=== PATIENT | female | born 1990 | race Caucasian/White ===

== ENCOUNTER 2023-10-03 08:35 | Inpatient (IN) | payer OTHER, MEDICAID, SELFPAY ==
[2023-10-03] VITALS (20 sets, daily range): BP systolic 107–127; BP diastolic 66–86; PULSE 62–94; RESP 16–43; TEMP 36.3–37.1; O2SAT 87–96; BMI 30.2
--- NOTE | 2023-10-03 08:54 | ED.URI ---
HPI - URI/Sore Throat General Chief Complaint: Upper Respiratory Symptoms Stated Complaint: chest hurts sob Time Seen by Provider: 10/03/23 08:42 History of Present Illness HPI Narrative: 33-year-old female with no reported past medical history presents for 7-8 weeks wheezing, chest tightness, shortness of breath. Symptoms started after a nonspecific upper respiratory syndrome several months ago and has been persistent since onset. Patient states that she bought an amwh-iov-tpbgggz asthma pump at [employer], but it does not seem to be helping very much. Patient states she feels like she got wheezier around 3-4am today, prompting her visit to the ED today. Patient has not seen any other physicians or providers for this complaint. Patient denies history of asthma or other lung diseases as a child, she does not know her family history because she was adopted. She states she does vape and smoke marijuana, but is trying to quit. Review of Systems Review of Systems Narrative: Negative except as noted above Patient History Social History Smoking Status: Current every day smoker Smoking Status: Current every day smoker tobacco type: vaping alcohol intake frequency: holidays/special occasions only Substance Use Type: marijuana Exam Initial Vital Signs Initial Vital Signs: Vital Signs Pulse Rate 74 10/03/23 08:45 Pulse Oximetry 92 10/03/23 08:45 Const: Awake, alert, uncomfortable, nontoxic appearing Cardiac: regular rate, regular rhythm RESP: Speaking in complete sentences with some degree of difficulty, loud expiratory wheezes GI: Soft, nontender, nondistended, no rebound, no guarding MSK: Atraumatic, full range of motion, pulses equal Skin: Warm, Dry, intact, no rashes Neuro: AO x3, CN II-XII grossly intact, moves all extremities Course Orders Ordered: ED Orders 10/03/23 08:54 Chest [XR chest 2V] Stat 10/03/23 10:19 CT chest wo con Stat 10/03/23 10:27 Complete Blood Count AUTO DIFF Stat Comprehensive Metabolic Panel Stat 10/03/23 12:00 Trop I [Troponin I] Stat 10/03/23 12:08 Respiratory Panel (Film Array) Stat Discontinued Medications Albuterol/Ipratropium (Albuterol/Ipratropium 3 Ml Ampul) 9 ml INH NOW ONE Stop: 10/03/23 08:55 Last Admin: 10/03/23 09:16 Dose: 9 ml Documented By: ADRIEN Albuterol/Ipratropium (Albuterol/Ipratropium 3 Ml Ampul) 9 ml INH NOW ONE Stop: 10/03/23 11:53 Last Admin: 10/03/23 12:31 Dose: 9 ml Documented By: ADRIEN(2) Budesonide (Budesonide 0.5 Mg/2 Ml Neb) 0.5 mg INH NOW ONE Stop: 10/03/23 12:26 Last Admin: 10/03/23 12:31 Dose: 0.5 mg Documented By: ADRIEN(2) Dexamethasone (Dexamethasone 10 Mg/Ml Vial) 10 mg PO NOW ONE Stop: 10/03/23 08:55 Last Admin: 10/03/23 09:23 Dose: 10 mg Documented By: AMY Vital Signs Vital signs: Vital Signs - 8 hr 10/03/23 08:45 10/03/23 08:49 10/03/23 09:04 Temperature 98.7 F Pulse Rate 74 84 75 Respiratory Rate 16 43 H Blood Pressure 127/86 Pulse Oximetry 92 94 94 Oxygen Delivery Method Room Air Oxygen Flow Rate Fraction of Inspired Oxygen 10/03/23 09:16 10/03/23 09:30 10/03/23 10:00 Temperature Pulse Rate 65 75 85 Respiratory Rate 18 28 H 28 H Blood Pressure Pulse Oximetry 95 96 87 L Oxygen Delivery Method Room Air Oxygen Flow Rate Fraction of Inspired Oxygen 10/03/23 10:25 10/03/23 10:30 10/03/23 10:59 Temperature Pulse Rate 72 Respiratory Rate 24 Blood Pressure 114/72 Pulse Oximetry 88 L 93 Oxygen Delivery Method Room Air Nasal Cannula Oxygen Flow Rate 2 Fraction of Inspired Oxygen 10/03/23 10:59 10/03/23 11:00 10/03/23 11:00 Temperature Pulse Rate 75 78 Respiratory Rate 30 H 27 H Blood Pressure 113/68 Pulse Oximetry 92 91 Oxygen Delivery Method Oxygen Flow Rate Fraction of Inspired Oxygen 10/03/23 11:30 10/03/23 11:30 10/03/23 12:00 Temperature Pulse Rate 73 76 Respiratory Rate 22 28 H Blood Pressure 107/74 Pulse Oximetry 91 92 Oxygen Delivery Method Oxygen Flow Rate Fraction of Inspired Oxygen 10/03/23 12:30 10/03/23 12:31 10/03/23 13:00 Temperature Pulse Rate 69 62 75 Respiratory Rate 28 H 18 25 H Blood Pressure Pulse Oximetry 93 96 95 Oxygen Delivery Method Nasal Cannula Oxygen Flow Rate 3 Fraction of Inspired Oxygen 32 MDM - URI/Sore Throat Differential Diagnosis Differential diagnosis: Likely upper respiratory infection, bronchitis and pharyngitis Lab Data 10/03/23 10:27 10/03/23 10:27 Labs: Lab Results 10/03/23 10/03/23 10/03/23 Range/Units 10:27 12:00 12:08 WBC 9.0 (4.5-11.0) X10^3/uL RBC 4.62 (4.0-5.2) X10^6/uL Hgb 13.2 (12.0-16.0) g/dL Hct 39.1 (36-46) % MCV 84.8 (80-100) fL MCH 28.6 (26-34) PG MCHC 33.7 (30-36) % RDW 13.8 (11.6-14.8) % Plt Count 312 (150-400) X10^3/uL Neut % (Auto) 63.9 (50-75) % Lymph % (Auto) 23.6 L (25-40) % [place] % (Auto) 4.5 (3-14) % Eos % (Auto) 7.7 H (2-4) % Baso % (Auto) 0.3 (0-2) % Neut # (Auto) 5800 (8615-3971) /uL Lymph # (Auto) 2100 (4719-1154) /uL [place] # (Auto) 400 (0-900) /uL Eos # (Auto) 700 H (0-450) /uL Baso # (Auto) 0 (0-100) /uL Sodium 137 (137-145) mmol/L Potassium 3.6 (3.4-5.1) mmol/L Chloride 109 H (98-107) mmol/L Carbon Dioxide 23 (22-32) mmol/L BUN 13 (7-17) mg/dL Creatinine 0.58 (0.52-1.04) mg/dL Estimated GFR > 60 (>60) mL/min BUN/Creatinine Ratio 22.4 H (6-22) Glucose 121 H (70-100) mg/dL Calcium 8.7 (8.4-10.2) mg/dL Total Bilirubin 0.7 (0.2-1.3) mg/dL AST 20 (14-36) IU/L ALT 20 (<35) IU/L Alkaline Phosphatase 69 (38-126) U/L Troponin I < 0.012 (0.01-0.034) ng/mL Total Protein 7.3 (6.3-8.2) g/dL Albumin 4.0 (3.5-5.0) g/dL Globulin 3.3 (1.7-4.1) g/dL Albumin/Globulin Ratio 1.2 (1.0-2.8) Chlamy pneumoniae PCR Not detected (Not Detect) Adenovirus (PCR) Not detected (Not Detect) B.parapertussis DNA PCR Not detected (Not Detecte) Coronavirus OC43 (PCR) Not detected (Not Detect) Coronavirus HKU1 (PCR) Not detected (Not Detect) Coronavirus 229E (PCR) Not detected (Not Detect) SARS-CoV-2 (PCR) Not detected (Not Detecte) Coronavirus NL63 (PCR) Not detected (Not Detect) Human Metapneumovir PCR Not detected (Not Detect) Influenza Type A (PCR) Not detected (Not Detect) Influenza Type B (PCR) Not detected (Not Detect) M. pneumoniae (PCR) Not detected (Not Detect) Parainfluenza 1 (PCR) Not detected (Not Detect) Parainfluenza 2 (PCR) Not detected (Not Detect) Parainfluenza 3 (PCR) Not detected (Not Detect) Parainfluenza 4 (PCR) Not detected (Not Detect) RSV (PCR) Not detected (Not Detect) Entero/Rhino (PCR) Not detected (Not Detect) Imaging Data Chest x-ray: Radiologist's Impression: PROCEDURE: XR CHEST 2V INDICATIONS: DYSPNEA X7WKS, NOW WHEEZING TECHNIQUE: 2 views of the chest were acquired. COMPARISON: None. FINDINGS: Surgical changes and devices: None. Lungs and pleura: Lungs are clear. No pleural effusions or pneumothorax. Mediastinum: Mediastinal contours are normal. Heart size is normal. Bones and chest wall: No suspicious bony abnormalities. Soft tissues appear unremarkable. IMPRESSION: No acute cardiopulmonary abnormality is seen. Dictated by: Milton Ni M.D. on 10/03/2023 at 8:24 Approved by: Milton Ni M.D. on 10/03/2023 at 8:25 CT scan - chest: Radiologist's Impression: PROCEDURE: CT CHEST WO CON INDICATIONS: SOB TECHNIQUE: Noncontrast 5 mm thick sections acquired from the pulmonary apices to the posterior costophrenic angles. 1 mm lung window, 5 mm thick coronal and sagittal and 7 mm axial MIP reformats were then acquired. For radiation dose reduction, the following was used: automated exposure control, adjustment of mA and/or kV according to patient size. COMPARISON: [facility], CR, XR CHEST 2V, 10/03/2023, 8:53. FINDINGS: Image quality: Diagnostic. Lower Neck: No enlarged lymph nodes. Thyroid: No thyroid nodules which require sonographic follow up, per consensus guidelines. Axillae: No enlarged lymph nodes. Chest Wall: Unremarkable. Bones: Unremarkable. Lungs and Pleura: No pneumothorax or pleural effusions. Airspace opacities within the right anterior apex. Heart: Heart size is normal. No pericardial effusion. Thoracic Vessels: The aorta and pulmonary arteries demonstrate normal size. Mediastinum and Darlyn: No enlarged lymph nodes. Esophagus: No wall thickening. No hiatal hernia. Upper Abdomen: Visualized upper abdomen solid organs and bowel loops appear normal. IMPRESSION: Ground-glass opacity within the right apex concerning for infection. Given the peripheral ground-glass appearance, consider atypical infection. Dictated by: Milton Ni M.D. on 10/03/2023 at 10:13 Approved by: Milton Ni M.D. on 10/03/2023 at 10:17 [facility] Narrative Medical decision making narrative: Shortness of breath that has been ongoing for several weeks, worsened this morning. Patient has audible wheezes when speaking and loud expiratory wheezes with restricted lung movement at bases. Patient denies history of asthma or other lung diseases, is adopted so there is unknown if patient has family history of things that could cause lead onset lung disease such as alpha 1 antitrypsin. Currently saturating well on room air despite her wheezes. We will give Decadron, albuterol. Patient reports feeling improvement after her albuterol and Decadron, however she still has loud wheezes on pulmonary exam, air movement does seem to have improved. We will monitor saturations and we will observe patient for a while. Saturations decreased after initial nebulizers to upper 80s, low 90s on room air. Placed on supplemental nasal cannula for improved oxygenation. Concerned that patient may need to be admitted for her respiratory status, laboratory work and CT imaging of the chest ordered. Based on the duration of patient's complaints as well as wheezing on exam and no chest pain I have low suspicion for PE. Chest x-ray shows small ground-glass opacity in the right apex concerning for atypical infection, however no other acute process. Patient received a 2nd round of nebulizers but is still requiring 3 L nasal cannula to maintain saturations greater than 92%. Plan to admit patient for further assessment and treatment. Critical Care Time Critical Care Time Critical Care Time: Yes Total Critical Care Time: 42 Attestation: Acute hypoxemic respiratory failure requiring supplemental oxygen, multiple DuoNebs, frequent reassessments. Discharge Plan Departure Patient Disposition: Admitted as Observation Clinical Impression: Acute hypoxemic respiratory failure, Expiratory wheezing
[2023-10-03] MEDS: ALBUTEROL/IPRATROPIUM 3 ML AMPUL 9 ML INH ×2 (09:16→12:31)
[2023-10-03] MEDS: DEXAMETHASONE 10 MG/ML VIAL PO (09:23)
--- NOTE | 2023-10-03 10:19 | DI.CT.S_ITS ---
PROCEDURE: CT CHEST WO CON INDICATIONS: SOB TECHNIQUE: Noncontrast 5 mm thick sections acquired from the pulmonary apices to the posterior costophrenic angles. 1 mm lung window, 5 mm thick coronal and sagittal and 7 mm axial MIP reformats were then acquired. For radiation dose reduction, the following was used: automated exposure control, adjustment of mA and/or kV according to patient size. COMPARISON: [facility], CR, XR CHEST 2V, 10/03/2023, 8:53. FINDINGS: Image quality: Diagnostic. Lower Neck: No enlarged lymph nodes. Thyroid: No thyroid nodules which require sonographic follow up, per consensus guidelines. Axillae: No enlarged lymph nodes. Chest Wall: Unremarkable. Bones: Unremarkable. Lungs and Pleura: No pneumothorax or pleural effusions. Airspace opacities within the right anterior apex. Heart: Heart size is normal. No pericardial effusion. Thoracic Vessels: The aorta and pulmonary arteries demonstrate normal size. Mediastinum and Darlyn: No enlarged lymph nodes. Esophagus: No wall thickening. No hiatal hernia. Upper Abdomen: Visualized upper abdomen solid organs and bowel loops appear normal. IMPRESSION: Ground-glass opacity within the right apex concerning for infection. Given the peripheral ground-glass appearance, consider atypical infection. Dictated by: Milton Ni M.D. on 10/03/2023 at 10:13 Approved by: Milton iN M.D. on 10/03/2023 at 10:17
[2023-10-03 10:35] LABS: Add Manual Diff / Slide Review NO; Basophils Absolute Auto 0 /uL (0-100); Basophils Percent Auto 0.3 % (0-2); Eosinophils Absolute Auto 700 /uL (0-450); Eosinophils Percent Auto 7.7 % (2-4); Hematocrit 39.1 % (36-46); Hemoglobin 13.2 g/dL (12.0-16.0); Lymphocytes Absolute Auto 2100 /uL (1100-4500); Lymphocytes Percent Auto 23.6 % (25-40); Mean Corpuscular HGB Conc 33.7 % (30-36); Mean Corpuscular Hemoglobin 28.6 PG (26-34); Mean Corpuscular Volume 84.8 fL (80-100); Monocytes Absolute Auto 400 /uL (0-900); Monocytes Percent Auto 4.5 % (3-14); Neutrophils Absolute Auto 5800 /uL (1500-7000); Neutrophils Percent Auto 63.9 % (50-75); Platelet Count 312 X10^3/uL (150-400); Red Blood Cell Count 4.62 X10^6/uL (4.0-5.2); Red Cell Distribution Width 13.8 % (11.6-14.8)
[2023-10-03 10:50] LABS: Alanine Aminotransferase 20 IU/L (<35); Albumin Globulin Ratio 1.2 (1.0-2.8); Alkaline Phosphatase 69 U/L (38-126); Aspartate Aminotransferase 20 IU/L (14-36); BUN Creatinine Ratio 22.4 (6-22); Bilirubin Total 0.7 mg/dL (0.2-1.3); Blood Urea Nitrogen 13 mg/dL (7-17); Calcium 8.7 mg/dL (8.4-10.2); Carbon Dioxide 23 mmol/L (22-32); Chloride 109 mmol/L (98-107); Estimated Glomerular Filt Rate > 60 mL/min (>60); Globulin 3.3 g/dL (1.7-4.1); Glucose 121 mg/dL (70-100); HEMOLYSIS < 15 (0-50); Potassium 3.6 mmol/L (3.4-5.1); Sodium 137 mmol/L (137-145); Total Protein 7.3 g/dL (6.3-8.2)
[2023-10-03] MEDS: BUDESONIDE 0.5 MG/2 ML NEB INH (12:31)
[2023-10-03 12:34] LABS: Troponin I < 0.012 ng/mL (0.01-0.034)
[2023-10-03 13:15] LABS: Adenovirus Not Detected (Not Detect); B. parapertussis Not Detected (Not Detecte); Bordetella pertussis Not Detected (Not Detect); Chlamydophila pneumoniae Not Detected (Not Detect); Coronavirus 229E Not Detected (Not Detect); Coronavirus HKU1 Not Detected (Not Detect); Coronavirus NL 63 Not Detected (Not Detect); Coronavirus OC43 Not Detected (Not Detect); Human Metapneumovirus Not Detected (Not Detect); Human Rhinovirus/Enterovirus Not Detected (Not Detect); Influenza A Not Detected (Not Detect); Influenza B Not Detected (Not Detect); Mycoplasma pneumoniae Not Detected (Not Detect); Parainfluenza Virus 1 Not Detected (Not Detect); Parainfluenza Virus 2 Not Detected (Not Detect); Parainfluenza Virus 3 Not Detected (Not Detect); Parainfluenza Virus 4 Not Detected (Not Detect); Respiratory Syncytial Virus Not Detected (Not Detect); SARS- CoV-2 Not Detected (Not Detecte)
--- NOTE | 2023-10-03 14:08 | PC.NURSE ---
floor rn to call back for report
--- NOTE | 2023-10-03 15:12 | PC.NURSE ---
Addendum entered by Hailey Rubio R.N. 10/04/23 10:45: Patient sounds a bit better today but her lung sounds are still wheezy and course. She is on 3L of oxygen and sats in the mid 90s. Up independently to the bathroom. She has ceftriaxone infusing in her l.ac at this time and she is visiting with her boyfriend now. Original Note: Patient just admitted to room 209. BS with wheezes to upper and lower lobes, She is on 3L of oxygen and sats are 94%. Skin is clear, she does have a couple of small scars to her l.knee from previous orthoscopic knee surgery. Patient does vape and smokes marijuana, she denies any other use of alcohol or drugs. Resting comfortably now.
--- NOTE | 2023-10-03 15:35 | PM.HP.1 ---
History of Present Illness History of Present Illness Date Patient Seen: 10/03/23 Time Patient Seen: 15:35 Chief complaint: chest hurts sob Narrative: The patient is a 33-year-old female who is otherwise healthy. She is visiting her boyfriend who lives in this area. She has a history of using a vape as well as occasional smoking of marijuana. She presents with progressive shortness a breath which has been ongoing for about 2 weeks. She has had mostly dyspnea on exertion. She is noted some audible wheezing and did buy an vmif-zme-cajtcsh inhaler which has helped to some degree. She has no history of lung problems, and did note that she had a fever about a week ago when her kids have had upper respiratory illnesses. She denies rhinorrhea, cough or sore throat. She did have respiratory PCR in the ED which was negative. Her chest x-ray is also unremarkable, a CT of the chest without angiogram revealed some basilar ground-glass opacities. She was to look smoke cigarettes and then went to the vape as a means of getting way of from cigarettes. She also intends to stop vaping. She received bronchodilators in the ED with great improvement of her breathing. The reason she came in today is because her breathing became much worse than it has been a would not improve with her inhaler. In the ED, she was found to be very wheezy. She was also hypoxemic and required 3 L of oxygen to maintain saturations above 90%. [facility] Social History household members: children Smoking Status: Current every day smoker alcohol intake: current Meds Home Medications and Allergies Home Medications Medication Instructions Recorded Confirmed Type No Known Home Medications 10/03/23 10/03/23 History Allergies Allergy/AdvReac Type Severity Reaction Status Date / Time pineapple AdvReac Hives Verified 10/03/23 14:58 Review of Systems Review of Systems Narrative: All else reviewed and otherwise unremarkable except as noted in the history and physical. Exam Vital Signs (past 8 hours): - 10/03/23 08:45 10/03/23 08:49 10/03/23 09:04 Temperature 98.7 F Pulse Rate 74 84 75 Respiratory Rate 16 43 H Blood Pressure 127/86 Pulse Oximetry 92 94 94 Oxygen Delivery Method Room Air Oxygen Flow Rate Fraction of Inspired Oxygen 10/03/23 09:16 10/03/23 09:30 10/03/23 10:00 Temperature Pulse Rate 65 75 85 Respiratory Rate 18 28 H 28 H Blood Pressure Pulse Oximetry 95 96 87 L Oxygen Delivery Method Room Air Oxygen Flow Rate Fraction of Inspired Oxygen 10/03/23 10:25 10/03/23 10:30 10/03/23 10:59 Temperature Pulse Rate 72 Respiratory Rate 24 Blood Pressure 114/72 Pulse Oximetry 88 L 93 Oxygen Delivery Method Room Air Nasal Cannula Oxygen Flow Rate 2 Fraction of Inspired Oxygen 10/03/23 10:59 10/03/23 11:00 10/03/23 11:00 Temperature Pulse Rate 75 78 Respiratory Rate 30 H 27 H Blood Pressure 113/68 Pulse Oximetry 92 91 Oxygen Delivery Method Oxygen Flow Rate Fraction of Inspired Oxygen 10/03/23 11:30 10/03/23 11:30 10/03/23 12:00 Temperature Pulse Rate 73 76 Respiratory Rate 22 28 H Blood Pressure 107/74 Pulse Oximetry 91 92 Oxygen Delivery Method Oxygen Flow Rate Fraction of Inspired Oxygen 10/03/23 12:30 10/03/23 12:31 10/03/23 13:00 Temperature Pulse Rate 69 62 75 Respiratory Rate 28 H 18 25 H Blood Pressure Pulse Oximetry 93 96 95 Oxygen Delivery Method Nasal Cannula Oxygen Flow Rate 3 Fraction of Inspired Oxygen 32 10/03/23 13:30 10/03/23 14:00 Temperature Pulse Rate 94 H 84 Respiratory Rate 24 24 Blood Pressure Pulse Oximetry 92 91 Oxygen Delivery Method Nasal Cannula Nasal Cannula Oxygen Flow Rate 3 3 Fraction of Inspired Oxygen Fraction of Inspired Oxygen 32 SaO2/FiO2 Ratio 300 Oxygen Delivery Method Nasal Cannula Oxygen Flow Rate 3 Narrative Exam Narrative: NAD, alert and oriented, fluent speech, calm. Normocephalic skull, EOMI, anicteric sclera, symmetric pupils. Oropharynx unremarkable, no droop. Neck supple, midline trachea, no adenopathy. Lungs are notable for inspiratory and expiratory, normal rate and effort. Heart regular, no murmur gallop or rub. Abdomen is soft, non distended and non tender. Extremities are free of edema. Skin is free of rash or lesions. Joints are not swollen or deformed. Judgment appears to be normal. Objective Imaging CT scan - chest: Radiologist's impression: Ground-glass opacity within the right apex concerning for infection. Given the peripheral ground-glass appearance, consider atypical infection. Chest x-ray: Radiologist's impression: No acute cardiopulmonary abnormality is seen. Labs 10/03/23 10:27 10/03/23 10:27 Labs: Laboratory Results - last 24 hr 10/03/23 10/03/23 10/03/23 10: 12:00 12:08 WBC 9.0 RBC 4.62 Hgb 13.2 Hct 39.1 MCV 84.8 MCH 28.6 MCHC 33.7 RDW 13.8 Plt Count 312 Neut % (Auto) 63.9 Lymph % (Auto) 23.6 L [place] % (Auto) 4.5 Eos % (Auto) 7.7 H Baso % (Auto) 0.3 Neut # (Auto) 5800 Lymph # (Auto) 2100 [place] # (Auto) 400 Eos # (Auto) 700 H Baso # (Auto) 0 Sodium 137 Potassium 3.6 Chloride 109 H Carbon Dioxide 23 BUN 13 Creatinine 0.58 Estimated GFR > 60 BUN/Creatinine Ratio 22.4 H Glucose 121 H Calcium 8.7 Total Bilirubin 0.7 AST 20 ALT 20 Alkaline Phosphatase 69 Troponin I < 0.012 Total Protein 7.3 Albumin 4.0 Globulin 3.3 Albumin/Globulin Ratio 1.2 Chlamy pneumoniae PCR Not detected Adenovirus (PCR) Not detected B.parapertussis DNA PCR Not detected Coronavirus OC43 (PCR) Not detected Coronavirus HKU1 (PCR) Not detected Coronavirus 229E (PCR) Not detected SARS-CoV-2 (PCR) Not detected Coronavirus NL63 (PCR) Not detected Human Metapneumovir PCR Not detected Influenza Type A (PCR) Not detected Influenza Type B (PCR) Not detected M. pneumoniae (PCR) Not detected Parainfluenza 1 (PCR) Not detected Parainfluenza 2 (PCR) Not detected Parainfluenza 3 (PCR) Not detected Parainfluenza 4 (PCR) Not detected RSV (PCR) Not detected Entero/Rhino (PCR) Not detected Assessment & Plan Assessment & Plan narrative: 1. Probable asthma exacerbation, present on admission and active. The patient has no formal diagnosis of asthma and we will require pulmonary function tests in several weeks after she is over her acute exacerbation. 2. Acute hypoxic respiratory failure, present on admission and active. 3. Vape abuse, present on admission and active. Plan: -azithromycin p.o. 500 daily. -prednisone 40 mg p.o. daily. -bronchodilators q.2 hours as needed, albuterol. -wean oxygen as able. She understands importance of stopping the use of the vape as well as smoking marijuana. In addition she has a primary care doctor Dr. Pelaez in [place]. She will follow up with him to resume evaluation for possible asthma after she was discharged. Time Spent With Patient Time with patient: 30 to 49 minutes with 50% spent counseling/coordinating care Quality VTE Deep Vein Thrombosis/Pulmonary Embolism Present on Admission: No MIPS - Admit I confirm the patient?s Advance Care Plan is present, Code status is documented, Surrogate decision maker is in patient?s record [If Yes, STOP here]: Yes MIPS - Meds 'Current medications' to include all prescriptions, uxib-wul-aniwapo products, herbals, cannabis/cannabidiol products, and vitamin/mineral/dietary (nutritional) supplements. I have utilized all available resources to obtain, update, or review the patient?s current medications. [If Yes, STOP here]: Yes
[2023-10-03] MEDS: NICOTINE 14 PATCH 14 MG TOP (16:12)
[2023-10-03] MEDS: predniSONE 20 MG TABLET 40 MG PO (16:12)
[2023-10-03] MEDS: ALBUTEROL 2.5 MG/3 ML NEB (ADULT) INH (19:45)
[2023-10-04] VITALS (10 sets, daily range): BP systolic 110–126; BP diastolic 56–78; PULSE 71–99; RESP 16–20; TEMP 36.4–36.9; O2SAT 93–96
[2023-10-04] MEDS: ALBUTEROL 2.5 MG/3 ML NEB (ADULT) INH ×3 (01:35→14:11)
[2023-10-04 06:09] LABS: Add Manual Diff / Slide Review NO; Basophils Absolute Auto 100 /uL (0-100); Basophils Percent Auto 0.4 % (0-2); Eosinophils Absolute Auto 0 /uL (0-450); Eosinophils Percent Auto 0.1 % (2-4); Hematocrit 39.4 % (36-46); Lymphocytes Absolute Auto 1400 /uL (1100-4500); Lymphocytes Percent Auto 9.9 % (25-40); Mean Corpuscular HGB Conc 33.1 % (30-36); Mean Corpuscular Hemoglobin 28.3 PG (26-34); Mean Corpuscular Volume 85.4 fL (80-100); Monocytes Absolute Auto 400 /uL (0-900); Monocytes Percent Auto 2.8 % (3-14); Neutrophils Absolute Auto 11800 /uL (1500-7000); Neutrophils Percent Auto 86.8 % (50-75); Platelet Count 349 X10^3/uL (150-400); Red Blood Cell Count 4.61 X10^6/uL (4.0-5.2); Red Cell Distribution Width 13.8 % (11.6-14.8); White Blood Cell Count 13.6 X10^3/uL (4.5-11.0)
[2023-10-04 06:23] LABS: BUN Creatinine Ratio 18.5 (6-22); Blood Urea Nitrogen 10 mg/dL (7-17); Calcium 9.2 mg/dL (8.4-10.2); Carbon Dioxide 23 mmol/L (22-32); Chloride 108 mmol/L (98-107); Estimated Glomerular Filt Rate > 60 mL/min (>60); Glucose 134 mg/dL (70-100); HEMOLYSIS < 15 (0-50); Potassium 4.3 mmol/L (3.4-5.1); Sodium 140 mmol/L (137-145)
[2023-10-04] MEDS: cefTRIAXone 1,000 MG in SODIUM CHLORIDE 0.9% 100 ML 200 MG IV (10:15)
[2023-10-04] MEDS: NICOTINE 14 PATCH 14 MG TOP (10:15)
[2023-10-04] MEDS: predniSONE 20 MG TABLET 40 MG PO (10:15)
[2023-10-04] MEDS: AZITHROMYCIN 250 MG TABLET 500 MG PO (10:15)
[2023-10-04] MEDS: MONTELUKAST 10 MG TABLET PO (14:04)
--- NOTE | 2023-10-04 14:07 | CM.DANOTE ---
Patient is a 33 yo female who was admitted INPT on 10/03/23 for SOB. Pt has [employer] and [employer] for insurance and her PCP is Dr. Pelaez in [place]. EMR was reviewed. Per MD, pt with hx of vaping and smoking marijuana and admitted for likely undx asthma exacerbation, hypoxia, and possible pneumonia and on 3LO2. Pt unable to be weaned to room air today and not yet medically stable to d/c. SW met bedside with pt and her sister Raine [phone] and they confirm that pt lives in [place] with her two children that she shares custody with her ex and kids are currently with her ex. Pt is active and independent at baseline, does not use DME for ambulation, drives regularly, works, and does not have home oxygen at baseline. Pt confirms her sister Raine lives only a couple minutes from her in [place] and pt comes down to visit her boyfriend Kalyan [phone] who lives in [place]. Pt denies any current discharge planning needs and preference is to discharge home once off oxygen and sister confirms she can provide transport as pt's car is currently with her boyfriend. Plan: SW to follow for plan of discharge home via sister POV when weaned to room air and any further identified discharge planning needs. TIM Vanegas Discharge Planning/Care Management CM Discharge Assessment Start: 10/04/23 13:37 Freq: Status: Active Protocol: Document 10/04/23 13:37 BF (Rec: 10/04/23 13:39 BF [id number]) Discharge Planning Assessment Assigned Mva Reactor Operator Head TIM Bustillos DPOA/Assigned Designee Name none Advance Directives? No Advance Directives on File No History Provided By Patient,Medical Record Has Patient been admitted in last 30 No days? Prior Living Arrangements RV Household Members children Type of transporation used prior to Drives own vehicle admit Independent with ADL's Yes Is patient alert and oriented? Yes Caregiver for Another Yes: children at home Barriers to Discharge No Discharge Plan Home Referrals Initiated None needed Additional Comment plans to f/u with PCP regarding possible asthma Whiteboard Updated in Patient Room with Yes name and ext. # of Mva Reactor Operator Head Review Status In Process Please Provide Date Initial DC 10/04/23 Assessment Was Performed Next Review Type Continued Stay Review
[2023-10-04] MEDS: BUDESONIDE 0.5 MG/2 ML NEB 1 MG INH ×2 (14:12→19:12)
[2023-10-04] MEDS: methylPREDNISolone 125 MG/2 ML VIAL 60 MG IV ×2 (16:34→22:08)
--- NOTE | 2023-10-04 17:36 | PM.PN.1 ---
Subjective Subjective Interval history: Patient still extremely wheezy today. She is having mild resp distress and on 3L NC. She notes that she is unvaccinated completely and never received any childhood immunizations. Spoke with pulm and they gave recs. Exam Vital Signs (past 8 hours): - 10/04/23 12:00 10/04/23 14:15 Temperature 97.6 F Pulse Rate 99 H 86 Respiratory Rate 18 18 Blood Pressure 118/56 L Pulse Oximetry 93 93 Oxygen Delivery Method Nasal Cannula Oxygen Flow Rate 3 3 Fraction of Inspired Oxygen 32 Fraction of Inspired Oxygen 32 SaO2/FiO2 Ratio 290 Oxygen Delivery Method Nasal Cannula Oxygen Flow Rate 3 Narrative Exam Narrative: mild distress, alert and oriented, fluent speech, anxious Normocephalic skull, EOMI, anicteric sclera, symmetric pupils. Oropharynx unremarkable, no droop. Neck supple, midline trachea, no adenopathy. Lungs are notable for diffuse inspiratory and expiratory wheezes, normal rate and effort. Heart regular, no murmur gallop or rub. Abdomen is soft, non distended and non tender. Extremities are free of edema. Skin is free of rash or lesions. Joints are not swollen or deformed. Judgment appears to be normal. Objective Labs 10/04/23 05:28 10/04/23 05:28 Labs: Laboratory Results - last 24 hr 10/04/23 05:28 WBC 13.6 H D RBC 4.61 Hgb 13.0 Hct 39.4 MCV 85.4 MCH 28.3 MCHC 33.1 RDW 13.8 Plt Count 349 Neut % (Auto) 86.8 H D Lymph % (Auto) 9.9 L [place] % (Auto) 2.8 L Eos % (Auto) 0.1 L Baso % (Auto) 0.4 Neut # (Auto) 89764 H Lymph # (Auto) 1400 [place] # (Auto) 400 Eos # (Auto) 0 Baso # (Auto) 100 Sodium 140 Potassium 4.3 Chloride 108 H Carbon Dioxide 23 BUN 10 Creatinine 0.54 Estimated GFR > 60 BUN/Creatinine Ratio 18.5 Glucose 134 H Calcium 9.2 PFSH Social History household members: children Smoking Status: Current every day smoker alcohol intake: current Assessment & Plan Assessment & Plan narrative: 1. Probable asthma exacerbation, present on admission and active. Eos 7.7% on initial CBC. The patient has no formal diagnosis of asthma and we will require pulmonary function tests in several weeks after she is over her acute exacerbation. 2. Acute hypoxic respiratory failure, present on admission and active. 3. Vape abuse, present on admission and active. Plan: -azithromycin p.o. 500 daily. Added rocephin to cover for strep pneumo. -changed prednisone to solumedrol due to continued wheezes. Pulm ok with 60mg IV q6h. Also added singulair daily. -bronchodilators q.2 hours as needed, duonebs and budesonide 1mg BID added per pulm -Dr. Starkey to see on 10/04 -wean oxygen as able. She understands importance of stopping the use of the vape as well as smoking marijuana. In addition she has a primary care doctor Dr. Pelaez in [place]. She will follow up with him to resume evaluation for possible asthma after she was discharged. Dispo: 2 days to improve hypoxia and wheezing. Time Spent With Patient Time with patient: 30 to 49 minutes with 50% spent counseling/coordinating care Quality VTE Deep Vein Thrombosis/Pulmonary Embolism Present on Admission: No
[2023-10-04] MEDS: ALBUTEROL/IPRATROPIUM 3 ML AMPUL INH (19:11)
[2023-10-05 00:55] VITALS: BP 109/58; PULSE 81; RESP 16; TEMP 36; O2SAT 93
[2023-10-05 05:13] VITALS: BP 113/71; PULSE 78; RESP 18; TEMP 35.9; O2SAT 92
[2023-10-05 05:15] LABS: Add Manual Diff / Slide Review NO; Basophils Absolute Auto 0 /uL (0-100); Basophils Percent Auto 0.2 % (0-2); Eosinophils Absolute Auto 0 /uL (0-450); Eosinophils Percent Auto 0.2 % (2-4); Hematocrit 40.3 % (36-46); Hemoglobin 13.3 g/dL (12.0-16.0); Lymphocytes Absolute Auto 1100 /uL (1100-4500); Lymphocytes Percent Auto 6.6 % (25-40); Mean Corpuscular Hemoglobin 28.3 PG (26-34); Mean Corpuscular Volume 85.7 fL (80-100); Monocytes Absolute Auto 200 /uL (0-900); Monocytes Percent Auto 1.2 % (3-14); Neutrophils Absolute Auto 15300 /uL (1500-7000); Neutrophils Percent Auto 91.8 % (50-75); Platelet Count 375 X10^3/uL (150-400); Red Cell Distribution Width 13.8 % (11.6-14.8); White Blood Cell Count 16.7 X10^3/uL (4.5-11.0)
[2023-10-05] MEDS: methylPREDNISolone 125 MG/2 ML VIAL 60 MG IV ×2 (05:16→10:10)
[2023-10-05 05:27] LABS: BUN Creatinine Ratio 22.1 (6-22); Blood Urea Nitrogen 15 mg/dL (7-17); Calcium 9.5 mg/dL (8.4-10.2); Carbon Dioxide 24 mmol/L (22-32); Chloride 107 mmol/L (98-107); Estimated Glomerular Filt Rate > 60 mL/min (>60); Glucose 143 mg/dL (70-100); HEMOLYSIS < 15 (0-50); Potassium 4.9 mmol/L (3.4-5.1); Sodium 138 mmol/L (137-145)
[2023-10-05] MEDS: BUDESONIDE 0.5 MG/2 ML NEB 1 MG INH (06:33)
[2023-10-05] MEDS: ALBUTEROL/IPRATROPIUM 3 ML AMPUL INH ×2 (06:33→10:35)
[2023-10-05 08:00] VITALS: BP 116/69; PULSE 69; RESP 16; TEMP 36.2; O2SAT 95
[2023-10-05] MEDS: MONTELUKAST 10 MG TABLET PO (08:42)
[2023-10-05] MEDS: AZITHROMYCIN 250 MG TABLET 500 MG PO (08:42)
[2023-10-05] MEDS: NICOTINE 14 PATCH 14 MG TOP (08:42)
[2023-10-05] MEDS: cefTRIAXone 1,000 MG in SODIUM CHLORIDE 0.9% 100 ML 200 MG IV (08:43)
[2023-10-05] MEDS: FLUCONAZOLE 100 MG TABLET 150 MG PO (10:10)
--- NOTE | 2023-10-05 10:29 | P.CONS_ITS ---
History of Present Illness Consult details Date Patient Seen: 10/05/23 Time Patient Seen: 10:29 Chief complaint: chest hurts sob Reason for consult: acute hypoxemic respiratory failure, shortness of breath Requesting provider: Miguel Kim Narrative: I would the pleasure of seeing your patient Hilaria Ta who has a pleasant 33-year-old female with no significant past medical history other than vaping marijuana and recent ACL repair of the knee who presents 10/02 for acute hypoxemic respiratory failure and shortness of breath with wheezing for whom were consulted for management. She has been quite physically active for many years. She did have some unintentional weight gain last year after knee surgery and has been on phentermine. She was stopped this due to some jitteriness. She did move about a year ago from her home into a trailer. She does have several children. She thinks that her brother and mom had COPD but her brother is only 9 years older than her but both were smokers. She did have a URI in her children often do have respiratory infectious symptoms. This was about a month and a half ago. She weathered that is just fine with some mild fevers. However she began having some shortness of breath the beginning of August using [id number] Primatene mist. She initially would need a single dose every night and then slowly escalated to needing 40 doses a day associated with worsening shortness of breath. She was unable to do her sports activities and she plays softball travels for this. She did go to [place] and had some worsening shortness of breath at altitude. Denies any new pets. On arrival she was hypoxemic requiring [address] angiogram of chest showed some significant bronchial wall thickening and some regional GGOs in the right upper lobe likely from an old infectious or inflammatory process. Respiratory viral PCR negative. Absolute eosinophilic count was elevated. She was noted to be wheezy. She was started on bronchodilators, oral corticosteroids then escalated IV corticosteroids. She would noticed relief with DuoNebs. Yesterday per my discussion with Dr. Julio Manzo and budesonide nebulizer was restarted. Patient feels today she was clinically improving. She would more of an appetite. She was weaned off oxygen. Meds Home Medications and Allergies Home Medications Medication Instructions Recorded Confirmed Type No Known Home Medications 10/03/23 10/03/23 History Allergies Allergy/AdvReac Type Severity Reaction Status Date / Time pineapple AdvReac Hives Verified 10/03/23 14:58 Exam Vital Signs (past 8 hours): - 10/05/23 05:13 10/05/23 08:00 Temperature 96.7 F L 97.2 F L Pulse Rate 78 69 Respiratory Rate 18 16 Blood Pressure 113/71 116/69 Pulse Oximetry 92 95 Oxygen Flow Rate 3 2.5 Fraction of Inspired Oxygen 32 SaO2/FiO2 Ratio 290 Oxygen Delivery Method Nasal Cannula Oxygen Flow Rate 2.5 Narrative Exam Narrative: Well-appearing middle-aged female sitting up in chair no distress, pleasant cooperative HENMT Head: normal to inspection Chest Chest: normal inspection of the chest Resp Effort & Inspection: normal respiratory effort Other: More expiratory rhonchi than musical wheezing bilaterally. Mild. Normal work of breathing. No conversational dyspnea Skin General: no rashes or lesions noted Neuro General: patient alert, patient awake and patient oriented x3 Psych Appearance: grossly normal Objective Imaging CT scan - chest: My impression: I reviewed CT chest on 10/03/2023 showing bronchial wall thickening, regional GGOs in the right upper lobe consistent with the infectious or inflammatory process, no interstitial lung disease Labs 10/05/23 05:04 10/05/23 05:04 Labs: Laboratory Results - last 24 hr 10/05/23 05:04 WBC 16.7 H RBC 4.70 Hgb 13.3 Hct 40.3 MCV 85.7 MCH 28.3 MCHC 33.0 RDW 13.8 Plt Count 375 Neut % (Auto) 91.8 H Lymph % (Auto) 6.6 L [place] % (Auto) 1.2 L Eos % (Auto) 0.2 L Baso % (Auto) 0.2 Neut # (Auto) 28026 H Lymph # (Auto) 1100 [place] # (Auto) 200 Eos # (Auto) 0 Baso # (Auto) 0 Sodium 138 Potassium 4.9 Chloride 107 Carbon Dioxide 24 BUN 15 Creatinine 0.68 Estimated GFR > 60 BUN/Creatinine Ratio 22.1 H Glucose 143 H Calcium 9.5 I personally reviewed labs showing absolute eosinophilic count of 500 I reviewed respiratory viral PCR negative PFSH Social History household members: children Tobacco & Substance Use Smoking Status: Current every day smoker alcohol intake: current Assessment & Plan Assessment and plan (1) Acute hypoxemic respiratory failure: Status: Acute Plan: Patient had acute hypoxemic respiratory failure likely due to asthma exacerbation. She was now weaned off supplemental oxygen with treatment of her underlying asthma. I recommend a bustamante walk challenge before discharge but suspect that with clinical improvement she will not need supplemental oxygen. (2) Expiratory wheezing: Status: Acute Plan: Patient presented with worsening asthma symptoms in the setting of URI and family history of asthma. She had peripheral eosinophilia. CT chest with bronchial wall thickening and some regional GGOs sequestered in the right upper lobe consistent with her recent infectious process. Her wheezing responded to corticosteroids and bronchodilators which he was recently escalated yesterday to add budesonide nebulized and montelukast. She was now weaned off supplemental oxygen. She was clinically feeling improved. I do recommend a maintenance bronchodilator regimen going forward given her worsening symptoms and likely trigger of asthma due to recent URI. The recommend high-dose ICS Laba, montelukast and rescue albuterol or DuoNeb nebulizer. She should ideally have outpatient pulmonary follow up but she would prefer to follow up with the PCP. She would benefit from having PFTs as an outpatient. It is unclear if this is more of a postviral bronchitis issue that is expected to resolve or if this will be long-term asthma and so we will need to be clinically monitored. I do think it is worthwhile ruling out ABPA given the central bronchiectasis and bronchial wall thickening however think this is less likely. If patient has uncontrolled symptoms despite this therapy then I recommend her PCP refer her to pulmonology which we are happy to see her virtually. Patient in agreement the plan. Time Spent With Patient Time with patient: 70 minutes or more, with 50% spent counseling/coordinating
[2023-10-05 10:36] VITALS: PULSE 89; RESP 18; O2SAT 91
--- NOTE | 2023-10-05 10:53 | PC.NURSE ---
Addendum entered by Cal Severino R.N. 10/05/23 14:00: Pt discharged to care of sister. Will follow up with PCP and Pulmonary outpatient. IV d/c'd per protocol, discharge instructions given. Belongings accounted for. Original Note: A&O conversant, eager to go home. See by Dr. Parekh and pulmonary in to see Pt and discuss plan. Sister attentive at bedside.
--- NOTE | 2023-10-05 10:55 | PM.DS.1 ---
History of Present Illness History of Present Illness Chief complaint: chest hurts sob Narrative: The patient is a 33-year-old female who is otherwise healthy. She is visiting her boyfriend who lives in this area. She has a history of using a vape as well as occasional smoking of marijuana. She presents with progressive shortness a breath which has been ongoing for about 2 weeks. She has had mostly dyspnea on exertion. She is noted some audible wheezing and did buy an [id number] inhaler which has helped to some degree. She has no history of lung problems, and did note that she had a fever about a week ago when her kids have had upper respiratory illnesses. She denies rhinorrhea, cough or sore throat. She did have respiratory PCR in the ED which was negative. Her chest x-ray is also unremarkable, a CT of the chest without angiogram revealed some basilar ground-glass opacities. She was to look smoke cigarettes and then went to the vape as a means of getting way of from cigarettes. She also intends to stop vaping. She received bronchodilators in the ED with great improvement of her breathing. The reason she came in today is because her breathing became much worse than it has been a would not improve with her inhaler. In the ED, she was found to be very wheezy. She was also hypoxemic and required 3 L of oxygen to maintain saturations above 90%. Discharge Providers Provider Date of admission: 10/03/23 13:58 Discharge Date: 10/05/23 Primary care physician: Dr Israel mcqueen [place] Consults: 10/03/23 15:35 Consult to Cardio/Pulmonary Rehabilitation Routine Comment: Physician Instructions: Evaluate and treat Discharge provider: Patel Parekh MD Summary Hospital Course Discharge Diagnosis: 1. Probable asthma exacerbation, present on admission and active. Eos 7.7% on initial CBC. The patient has no formal diagnosis of asthma and we will require pulmonary function tests in several weeks after she is over her acute exacerbation. 2. Acute hypoxic respiratory failure, present on admission and resolved. 3. Vape abuse, present on admission and active. Hospital Course: She was admitted with an apparent asthma exacerbation without a formal diagnosis of asthma. She was treated with steroids and inhalers improved over 2 days. She was seen by Pulmonary with recommendations given and will be started on these outpatient. She declined a pulmonary follow up appointment but will rather we will follow up with her primary care doctor in [place]. She was advised to stop smoking marijuana and using a vape as this can exacerbate her symptoms. Status at Discharge Cognitive/behavioral status at discharge: oriented Functional status at discharge: independent ambulation Overall status at discharge: patient is back to baseline Time Spent with Patient Time spent: Greater than 30 minutes Exam Vital Signs (past 8 hours): - 10/05/23 05:13 10/05/23 08:00 10/05/23 10:36 Temperature 96.7 F L 97.2 F L Pulse Rate 78 69 89 Respiratory Rate 18 16 18 Blood Pressure 113/71 116/69 Pulse Oximetry 92 95 91 Oxygen Delivery Method Room Air Oxygen Flow Rate 3 2.5 0 Fraction of Inspired Oxygen 21 Fraction of Inspired Oxygen 21 SaO2/FiO2 Ratio 433 Oxygen Delivery Method Room Air Oxygen Flow Rate 0 Narrative Exam Narrative: NAD, alert and oriented. Fluent speech. Lungs are with much less wheezing, normal rate and effort. Heart is regular, no murmur gallop or rub. Abdomen is soft, non distended. Extremities are free of edema. Objective Imaging Chest x-ray: Radiologist's impression: No acute cardiopulmonary abnormality is seen. CT scan - chest: Radiologist's impression: Ground-glass opacity within the right apex concerning for infection. Given the peripheral ground-glass appearance, consider atypical infection. Labs 10/05/23 05:04 10/05/23 05:04 Labs: Laboratory Results - last 24 hr 10/05/23 05:04 WBC 16.7 H RBC 4.70 Hgb 13.3 Hct 40.3 MCV 85.7 MCH 28.3 MCHC 33.0 RDW 13.8 Plt Count 375 Neut % (Auto) 91.8 H Lymph % (Auto) 6.[address] [place] % (Auto) 1.2 L Eos % (Auto) 0.2 L Baso % (Auto) 0.2 Neut # (Auto) 80304 H Lymph # (Auto) 1100 [place] # (Auto) 200 Eos # (Auto) 0 Baso # (Auto) 0 Sodium 138 Potassium 4.9 Chloride 107 Carbon Dioxide 24 BUN 15 Creatinine 0.68 Estimated GFR > 60 BUN/Creatinine Ratio 22.1 H Glucose 143 H Calcium 9.5 PFSH Social History household members: children Smoking Status: Current every day smoker alcohol intake: current Discharge Assessment & Plan Assessment and Plan Assessment: 1. Probable asthma exacerbation, present on admission and active. Eos 7.7% on initial CBC. The patient has no formal diagnosis of asthma and we will require pulmonary function tests in several weeks after she is over her acute exacerbation. 2. Acute hypoxic respiratory failure, present on admission and resolved. 3. Vape abuse, present on admission and active. Plan of Treatment: She is stable for discharge home and will be started on the outpatient medications as prescribed by Pulmonary. She will follow up with her PCP within the next week. He is advised to stop vaping and smoking marijuana. Discharge Plan Discharge Plan Patient Disposition: Home Provider Discharge Comment: Off oxygen, stable for discharge home using new medications with close follow up. No vaping or smoking. Discharge orders & Medications Prescriptions: New azithromycin [Zithromax Z-Minh] 250 mg Tablet 500 mg PO DAILY Qty: 2 0RF montelukast 10 mg Tablet 10 mg PO DAILY Qty: 30 0RF prednisone 50 mg tablet 50 mg PO DAILY Qty: 5 0RF albuterol sulfate 90 mcg/actuation HFA aerosol inhaler 1 inh inhalation QID PRN (Reason: shortness of breath or wheezing) Qty: 8.5 3RF Pulmicort Flexhaler 90 mcg/actuation aerosol powdr breath activated 1 inh inhalation Q12H Qty: 1 2RF Medication counseling provided by Pharmacist: Yes Discharge Health Status Multidrug resistant organism: No MDRO Diet/Activity/Treatments Diet: Regular Skin/Wound/Dressing Care Report to your healthcare provider any signs of infection, such as:: chills, fever Visit Report/Discharge Packet Instructions: DI for Prescription Opioid Use Stand Alone Forms: Patient Portal/API Quality VTE Deep Vein Thrombosis/Pulmonary Embolism Present on Admission: No
--- NOTE | 2023-10-05 11:04 | CM.DPC ---
DCP Cont. Reviewed EMR and team rounds for pt's status updates. Plan is for pt to d/c home today, she has been weaned off of O2, was doing a breathing tx at the time of this [employer] visit. Sister is at bedside and will transport pt home around lunchtime. No further DCP needs identified at this time.
[2023-10-09 23:34] LABS: Immunoglobulin E 246 IU/mL (6-495)
[2023-10-11 18:44] LABS: Aspergillus fumigatus IgE <0.10 kU/L (Class 0)
== END 2023-10-05 12:48 | disposition home or self-care (01) | DRG 141 ==
LOC: ED 13:09 → AC 10-04 07:48
PROVIDERS: Internal Medicine; Admitting Provider Hospitalist; Emergency Provider Emergency Medicine; Referring Provider Emergency Medicine; Visit Provider Hospitalist
DX: J45.901 Unspecified asthma with (acute) exacerbation (principal); J96.01 Acute respiratory failure with hypoxia; F17.290 Nicotine dependence, other tobacco product, uncomplicated
CPT/HCPCS: 36415; 71046; 71250; 80048; 80053; 82785; 84484; 85025; 86003; 87633; 94640; 94762; 99285; 99291; J0696; J1100; J2919; J7613

== ENCOUNTER → 2023-12-09 08:35 | Outpatient (CLI) | payer OTHER, MEDICAID, SELFPAY ==
[2023-10-03 14:05] VITALS: BMI 30.2
== END ==
PROVIDERS: PCP Internal Medicine Gastroenterology; Referring Provider Internal Medicine; Visit Provider Internal Medicine
DX: R06.02 Shortness of breath (principal); J45.40 Moderate persistent asthma, uncomplicated; L50.9 Urticaria, unspecified
CPT/HCPCS: 94010; 94726; 94729